=== PATIENT | female | born 1940 | race Caucasian/White ===

== ENCOUNTER 2017-09-06 06:38 | Day surgery (SDC) | payer MEDICARE ==
[~2017-09-06] VITALS: Ht 157.5 cm; Wt 54.5 kg
[~2017-09-06 06:38] MED LIST: CYAN1TAB29 PO; OMEP-110 PO; OXYB5TAB7 PO
[2017-09-06] MEDS ORDERED: LACTATED RINGERS 1,000 ML IV SCH (07:58)
[2017-09-06 08:00] VITALS: BP 119/80
[2017-09-06] MEDS ORDERED: LIDOCAINE 1%, 2ML SQ PRN (08:00)
[2017-09-06] MEDS ORDERED: MIDAZOLAM 1 MG/ML, 2ML ONE (08:40)
[2017-09-06] MEDS ORDERED: FENTANYL PF 100 MCG/2ML ONE ×2 (08:40→10:19)
[2017-09-06] MEDS ORDERED: OXYMETAZOLINE NASAL SPRAY 0.05%, 15ML ONE (09:27)
[2017-09-06] MEDS ORDERED: GLYCOPYRROLATE 0.2MG/1ML, 5ML ONE (09:46)
[2017-09-06] MEDS ORDERED: SUCCINYLCHOLINE 20 MG/ML, 10ML ONE (09:46)
[2017-09-06] MEDS ORDERED: PROPOFOL 10 MG/ML, 20ML ONE (09:46)
[2017-09-06] MEDS ORDERED: DEXAMETHASONE 4 MG/ML, 1ML ONE (09:46)
[2017-09-06] MEDS ORDERED: ROCURONIUM 10 MG/ML,10ML ONE (09:46)
[2017-09-06] MEDS ORDERED: ONDANSETRON 2MG/ML, 2ML ONE (09:46)
[2017-09-06] MEDS ORDERED: NEOSTIGMINE 1 MG/ML, 10ML ONE (09:46)
[2017-09-06] MEDS ORDERED: LABETALOL 5MG/ML, 20ML IV PRN (10:00)
[2017-09-06] MEDS ORDERED: EPHEDRINE 50 MG/ML, 1ML IVPush PRN (10:00)
[2017-09-06] MEDS ORDERED: DIAZEPAM 5 MG/ML, 2ML IVPush PRN (10:00)
[2017-09-06] MEDS ORDERED: hydrALAzine 20 MG/ML, 1ML IV PRN (10:00)
[2017-09-06] MEDS ORDERED: OXYcodone 5 MG/5 ML ORAL.SOL UDC PO PRN (10:00)
[2017-09-06] MEDS ORDERED: ACETAMINOPHEN 325 MG TABLET PO PRN (10:00)
[2017-09-06] MEDS ORDERED: METOPROLOL 1 MG/ML, 5ML IV PRN (10:00)
[2017-09-06] MEDS ORDERED: ONDANSETRON 2MG/ML, 2ML IVPush PRN (10:00)
[2017-09-06] MEDS ORDERED: MIDAZOLAM 1 MG/ML, 2ML IV PRN (10:00)
[2017-09-06] MEDS ORDERED: ALBUTEROL SULFATE 2.5 MG/3 ML NPPB PRN (10:00)
[2017-09-06] MEDS ORDERED: MEPERIDINE/PF 25MG/0.5ML IVPush PRN (10:00)
[2017-09-06] MEDS ORDERED: PROMETHAZINE 25 MG/ML, 1ML IV PRN (10:00)
[2017-09-06] MEDS ORDERED: HYDROmorphone 1 MG/ML, 1ML IV PRN (10:00)
[2017-09-06] MEDS ORDERED: HYDROcodone/APAP 7.5-325MG/15ML UDC PO PRN (10:00)
[2017-09-06] MEDS ORDERED: LIDOCAINE 1%, 20ML ONE (10:02)
[2017-09-06] MEDS ORDERED: OXYcodone 5 MG/5 ML ORAL.SOL UDC ONE (10:19)
[2017-09-06] MEDS ORDERED: ACETAMINOPHEN 650 MG/20.3 ML UDC ONE (10:19)
[2017-09-06] MEDS: FENTANYL PF 100 MCG/2ML IV PRN ×3 (10:21→10:35)
== END 2017-09-06 12:30 ==
LOC: OUT 06:38
PROVIDERS: ATTEND Otolaryngology
DX: J38.3 Other diseases of vocal cords (principal); R49.0 Dysphonia; K21.9 Gastro-esophageal reflux disease without esophagitis
CPT/HCPCS: 31540; 31570; 88305; 93005; C1878; J0330; J1100; J2250; J2405; J2704; J2710; J3010; J3490; J7120

== ENCOUNTER 2017-12-13 06:03 | Day surgery (SDC) | payer MEDICARE ==
[~2017-12-13] VITALS: Ht 157.5 cm; Wt 55.0 kg
[2017-12-13] MEDS ORDERED: LACTATED RINGERS 1,000 ML IV SCH (06:48)
[2017-12-13 06:50] VITALS: BP 124/67
[2017-12-13] MEDS ORDERED: FENTANYL PF 100 MCG/2ML ONE (07:13)
[2017-12-13] MEDS ORDERED: KETAMINE 10 MG/ML, 20ML ONE (07:13)
[2017-12-13] MEDS ORDERED: ONDANSETRON 2MG/ML, 2ML ONE (07:16)
[2017-12-13] MEDS ORDERED: PROPOFOL 10 MG/ML, 20ML ONE (07:16)
[2017-12-13] MEDS ORDERED: DEXAMETHASONE 4 MG/ML, 1ML ONE (07:16)
[2017-12-13] MEDS ORDERED: SUCCINYLCHOLINE 20 MG/ML, 10ML ONE (07:16)
[2017-12-13] MEDS ORDERED: morphine SULFATE 10 MG/ML, 1ML IV PRN (08:00)
[2017-12-13] MEDS ORDERED: MIDAZOLAM 1 MG/ML, 2ML IV PRN (08:00)
[2017-12-13] MEDS ORDERED: ONDANSETRON 2MG/ML, 2ML IVPush PRN (08:00)
[2017-12-13] MEDS ORDERED: PROMETHAZINE 12.5 MG SUPP PR PRN (08:00)
[2017-12-13] MEDS ORDERED: LABETALOL 5MG/ML, 20ML IV PRN (08:00)
[2017-12-13] MEDS ORDERED: ACETAMINOPHEN 325 MG TABLET PO PRN (08:00)
[2017-12-13] MEDS ORDERED: ALBUTEROL SULFATE 2.5 MG/3 ML NPPB PRN (08:00)
[2017-12-13] MEDS ORDERED: hydrALAzine 20 MG/ML, 1ML IV PRN (08:00)
[2017-12-13] MEDS ORDERED: FENTANYL PF 100 MCG/2ML IV PRN (08:00)
[2017-12-13] MEDS ORDERED: MEPERIDINE/PF 25MG/0.5ML IVPush PRN (08:00)
[2017-12-13] MEDS ORDERED: OXYcodone 5 MG/5 ML ORAL.SOL UDC PO PRN (08:00)
[2017-12-13] MEDS ORDERED: KETOROLAC 30 MG/1 ML ONE (08:35)
[2017-12-13] MEDS ORDERED: KETOROLAC 30 MG/1 ML IVPush PRN ×3 (09:00)
== END 2017-12-13 10:20 ==
LOC: OUT 06:03
PROVIDERS: ATTEND Otolaryngology
DX: R49.0 Dysphonia (principal); I25.2 Old myocardial infarction; K21.9 Gastro-esophageal reflux disease without esophagitis
CPT/HCPCS: 31570; 93005; C1878; J0330; J1100; J1885; J2405; J2704; J3010